=== PATIENT | female | born 1945 | race Caucasian/White ===

== ENCOUNTER 2016-04-21 09:37 | Outpatient (RCR) | payer MEDICARE ==
[~2016-04-21 09:37] MED LIST: CALCIUM; CITALOPRAM; CITALOPRAM PO; HYDR-3730 PO; THYROID PILL PO; VERAPAMIL; VESICARE
--- OUTSIDE RECORDS SUMMARY | 2016-04-21 09:40 | XMS REPORT | Continuity of Care Document ---
Author Author [facility] Organization [facility] Address Unknown Phone Unavailable Care Team Providers Care Shirt Turner Name Role Phone Salomón MORENO MD PCP Insurance Providers Payer Name Policy Number Subscriber Name Relationship W[employer] Medicare [id number] Alondra Patel 20 Self / Same As Patient Blue Cross [facility] Supp [id number] Alondra Patel 20 Self / Same As Patient Advance Directives Directive Response Recorded Date/Time Advance Directives Yes 12/18/14 6:25am Health Care Power of Injection Mold Technician No 12/18/14 6:25am Organ Donor Yes 12/18/14 6:25am Problems No problem information available. Medications Current Home Medications Medication Dose Units Route Directions Days/Qty Instructions Start Date [Citalopram] 1 Tab Oral Bedtime 05/24/12 [Thyroid Pill] 1 Tab Oral Bedtime 12/17/14 Hydrocodone/Acetaminophen 1 Each 1-2 Each Oral Every 6 Hours 35 Past Home Medications Medication Directions Ordered Status [Verapamil] , 05/24/12 Discontinued [Calcium] , 05/24/12 Discontinued [Citalopram] , 05/24/12 Discontinued [Vesicare] , 05/24/12 Discontinued Social History Social History Problem Response Recorded Date/Time Alcohol Use Rarely Uses 12/18/2014 6:25am Recreational Drug Use No 12/18/2014 6:25am Recent Foreign Travel SEE [place] 11/05/2015 9:56am Do you dip or chew tobacco? No 12/18/2014 6:25am Hospital Discharge Instructions No hospital discharge instructions. Plan of Care Prescriptions See Medication Section Functional Status No functional status results. Allergies, Adverse Reactions, Alerts No known allergies. Immunizations No immunization records. Vital Signs Acute Vital Signs Vital Response Date/Time Height 5 ft 7 in Weight 140 lb Body Mass Index 21.9 kg/m^2 Results No known relevant diagnostic tests, laboratory data and/or discharge summary. Procedures No known history of procedures. Encounters Encounter Location Arrival/Admit Date Discharge/Depart Date Attending Provider Discharged Recurring [facility] 12/31/15 9:45am 11:59pm JOSÉ ANTONIO ARIAS MD
== END 2016-07-20 | disposition home or self-care (01) ==
LOC: PAR 09:37
PROVIDERS: ATTEND Internal Medicine Hematology & Oncology
DX: C85.11 Unspecified B-cell lymphoma, lymph nodes of head, face, and neck (principal); Z85.118 Personal history of other malignant neoplasm of bronchus and lung; Z87.891 Personal history of nicotine dependence; I10 Essential (primary) hypertension; E03.9 Hypothyroidism, unspecified; J44.9 Chronic obstructive pulmonary disease, unspecified; Z79.899 Other long term (current) drug therapy
CPT/HCPCS: 99213

== ENCOUNTER → 2016-06-30 | Outpatient (CLI) | payer MEDICARE ==
[~2016-06-30] MED LIST changes: +CATHETER FLUSH 10 ML SYR IV PRN; +IOHEXOL 350 MG/ML 100 ML (OMNIPAQUE 350) VIAL IV ONE; +NS 100 ML (IVPB) BAG IV ONE
--- OUTSIDE RECORDS SUMMARY | 2016-06-30 09:37 | XMS REPORT | Continuity of Care Document ---
Author Author [facility] Organization [facility] Address Unknown Phone Unavailable Care Team Providers Care Driver'S License Examiner Name Role Phone Salomón MORENO MD PCP Insurance Providers Payer Name Policy Number Subscriber Name Relationship Wps [employer] [id number] Alondra Patel 20 Self / Same As Patient Blue Cross [facility] Supp [id number] Alondra Patel 20 Self / Same As Patient Advance Directives Directive Response Recorded Date/Time Advance Directives Yes 12/18/14 6:25am Health Care Power of Veneer Stacker No 12/18/14 6:25am Organ Donor Yes 12/18/14 [...] Discharge/Depart Date Attending Provider Discharged Recurring [facility] 12/31/15 9:45am 11:59pm JOSÉ ANTONIO ARIAS MD
[2016-06-30 10:40] LABS: BASOPHILS # (AUTO) 0.1 10^3/uL (0.0-0.1); BASOPHILS % (AUTO) 2 % (0-10); EOSINOPHILS # (AUTO) 0.2 10^3/uL (0.0-0.3); EOSINOPHILS % (AUTO) 2 % (0-10); LYMPHOCYTES # (AUTO) 1.6 X 10^3 (1.0-4.0); LYMPHOCYTES % (AUTO) 22 % (12-44); MEAN CORPUSCULAR HEMOGLOBIN 28 PG (25-34); MEAN CORPUSCULAR HGB CONC 33 G/DL (32-36); MEAN CORPUSCULAR VOLUME 84 FL (80-99); MEAN PLATELET VOLUME 9.7 FL (7.4-10.4); MONOCYTES # (AUTO) 0.6 X 10^3 (0.0-1.0); MONOCYTES % (AUTO) 8 % (0-12); NEUTROPHILS # (AUTO) 4.9 X 10^3 (1.8-7.8); NEUTROPHILS % (AUTO) 66 % (42-75); PLATELET COUNT 347 10^3/uL (130-400); RED BLOOD COUNT 5.48 10^6/uL (4.35-5.85); RED CELL DISTRIBUTION WIDTH 14.9 % (10.0-14.5); WHITE BLOOD COUNT 7.4 10^3/uL (4.3-11.0)
[2016-06-30 10:59] LABS: ALANINE AMINOTRANSFERASE 26 U/L (0-55); ALBUMIN 4.5 G/DL (3.2-4.5); ANION GAP 10 MMOL/L (5-14); ASPARTATE AMINO TRANSFERASE 26 U/L (5-34); BILIRUBIN,TOTAL 0.5 MG/DL (0.1-1.0); BLOOD UREA NITROGEN 14 MG/DL (7-18); BUN/CREATININE RATIO 20; CALCIUM 9.1 MG/DL (8.5-10.1); CARBON DIOXIDE 26 MMOL/L (21-32); CHLORIDE 102 MMOL/L (98-107); CREATININE SERUM 0.69 MG/DL (0.60-1.30); GFR ESTIMATED > 60; GLUCOSE 97 MG/DL (70-105); LACTATE DEHYDROGENASE 294 U/L (125-220); SODIUM 138 MMOL/L (135-145); TOTAL PROTEIN 6.9 G/DL (6.4-8.2)
--- NOTE | 2016-06-30 13:07 | Diagnostic Imaging Report ---
TECHNIQUE: CT scan of the neck and chest performed with intravenous contrast. INDICATION: B-cell lymphoma. CONTRAST: 100 mL of Omnipaque 350 is administered intravenously. COMPARISON: PET/CT from 04/21/2015. FINDINGS: CT neck: Curvilinear areas of enhancement are seen in the lateral pterygoid muscle on the right side probably related to dilated veins. This could be a normal variant or vascular malformation and appears slightly more prominent compared to prior CT of 02/12/2015. The does not appear to be related to a neoplastic mass. There is mild symmetric thickening seen in the nasopharynx of uncertain etiology. No suspicious focal mass is seen. The vocal cords appear symmetric. The thyroid gland is normal in appearance. The submandibular glands and the parotid glands appear unremarkable. The cervical chain demonstrates no significant lymphadenopathy. The paranasal sinuses appear clear. Vascular enhancement in the carotid arteries and jugular veins appears grossly unremarkable. The osseous structures demonstrate mild degenerative changes in the C6/[address] chest: The lungs demonstrate mild upper lobe predominant emphysema changes. There are areas of scarring in the right middle lobe. There is no pleural effusion. There is no lung mass or suspicious nodule identified. The mediastinum demonstrates no mass or significant lymphadenopathy. No hilar or axillary lymphadenopathy is seen. There is prominent right convexity scoliosis in the thoracic spine with no destructive mass identified. IMPRESSION: CT neck: No focal mass or significant lymphadenopathy. CT chest: No evidence of metastasis. Dictated by: Dictated on workstation # [id number]
== END ==
LOC: RAD 09:33
PROVIDERS: ATTEND Internal Medicine Hematology & Oncology
DX: C83.70 Burkitt lymphoma, unspecified site (principal); C34.90 Malignant neoplasm of unspecified part of unspecified bronchus or lung
CPT/HCPCS: 36415; 70491; 71260; 80053; 83615; 85025

== ENCOUNTER 2016-09-01 12:40 | Outpatient (RCR) | payer MEDICARE ==
--- OUTSIDE RECORDS SUMMARY | 2016-07-21 14:16 | XMS REPORT | Continuity of Care Document ---
Author Author [facility] Organization [facility] Address Unknown Phone Unavailable Care Team Providers Care Pest Control Chemical Technician Name Role Phone Salomón MORENO MD PCP Insurance Providers Payer Name Policy Number Subscriber Name Relationship Wps Medicare [id number] Alondra Patel 20 Self / Same As Patient Blue Cross [facility] Supp [id number] Alondra Patel 20 Self / Same As Patient Advance Directives Directive Response Recorded Date/Time Advance Directives Yes 12/18/14 6:25am Health Care Power of Internship Coordinator No 12/18/14 6:25am Organ Donor Yes 12/18/14 [...] Discharge/Depart Date Attending Provider Discharged Recurring [facility] 12/31/15 9:45am 11:59pm JOSÉ ANTONIO ARIAS MD
[~2016-09-01 12:40] MED LIST changes: -CATHETER FLUSH 10 ML SYR IV PRN; -IOHEXOL 350 MG/ML 100 ML (OMNIPAQUE 350) VIAL IV ONE; -NS 100 ML (IVPB) BAG IV ONE
== END 2016-10-19 | disposition home or self-care (01) ==
LOC: PAR 12:40
PROVIDERS: ATTEND Internal Medicine Hematology & Oncology
DX: C85.11 Unspecified B-cell lymphoma, lymph nodes of head, face, and neck (principal); Z85.118 Personal history of other malignant neoplasm of bronchus and lung; I10 Essential (primary) hypertension; E03.9 Hypothyroidism, unspecified; J44.9 Chronic obstructive pulmonary disease, unspecified; Z87.891 Personal history of nicotine dependence; Z79.899 Other long term (current) drug therapy
CPT/HCPCS: 99213

== ENCOUNTER 2016-10-27 13:07 | Outpatient (RCR) | payer MEDICARE | END 2017-01-25 | disposition home or self-care (01) | LOC: PAR 13:07 | PROVIDERS: ATTEND Internal Medicine Hematology & Oncology | DX: C85.11 Unspecified B-cell lymphoma, lymph nodes of head, face, and neck (principal); Z85.118 Personal history of other malignant neoplasm of bronchus and lung; I10 Essential (primary) hypertension; E03.9 Hypothyroidism, unspecified; J44.9 Chronic obstructive pulmonary disease, unspecified; Z87.891 Personal history of nicotine dependence; Z79.899 Other long term (current) drug therapy | CPT/HCPCS: 99213 ==